=== PATIENT | female | born 1975 | race African-American/Black ===

== ENCOUNTER 2018-05-20 14:49 | Emergency (ER) | payer MEDICAID ==
[~2018-05-20] VITALS: Ht 165.1 cm; Wt 115.0 kg
[2018-05-20 14:50] VITALS: BP 120/66
[2018-05-20] MEDS ORDERED: ACETAMINOPHEN 500MG TABLET PO ONE (15:30)
== END 2018-05-20 16:53 | disposition home or self-care (01) ==
LOC: ER 14:59
DX: S80.01XA Contusion of right knee, initial encounter (principal); W01.0XXA Fall on same level from slipping, tripping and stumbling without subsequent striking against object, initial encounter; Y93.9 Activity, unspecified; Y92.9 Unspecified place or not applicable; I10 Essential (primary) hypertension
CPT/HCPCS: 99283

== ENCOUNTER 2019-04-23 11:41 | Emergency (ER) | payer MEDICAID ==
[~2019-04-23] VITALS: Ht 170.2 cm; Wt 148.0 kg
[~2019-04-23 11:41] MED LIST: AMLO10TA80 PO; CHOL100022 PO; HYDR-2510 PO; ZOLP12.543 PO
[2019-04-23] MEDS ORDERED: HYDROCODONE/ACETAMINOPHEN 5/325MG TABLET PO ONE (14:00)
[2019-04-23] MEDS ORDERED: IBUPROFEN 600MG TABLET PO ONE (14:00)
[2019-04-23 16:10] VITALS: BP 162/109
== END 2019-04-23 16:10 | disposition home or self-care (01) ==
LOC: ER 11:41
DX: S52.532A Colles' fracture of left radius, initial encounter for closed fracture (principal); I10 Essential (primary) hypertension; F12.10 Cannabis abuse, uncomplicated; W01.0XXA Fall on same level from slipping, tripping and stumbling without subsequent striking against object, initial encounter; Y93.89 Activity, other specified; Y92.018 Other place in single-family (private) house as the place of occurrence of the external cause
CPT/HCPCS: 29125; 73070; 73090; 73110; 73130; 99283

== ENCOUNTER 2019-06-04 08:15 | Emergency (ER) | payer MEDICAID ==
[~2019-06-04] VITALS: Ht 170.2 cm; Wt 150.0 kg
[2019-06-04] MEDS ORDERED: KETOROLAC 60MG/2ML VIAL IM ONE (09:30)
[2019-06-05 08:18] VITALS: BP 147/82
== END 2019-06-05 11:30 | disposition home or self-care (01) ==
LOC: ER 08:15
DX: S42.201A Unspecified fracture of upper end of right humerus, initial encounter for closed fracture (principal); M25.511 Pain in right shoulder; F12.10 Cannabis abuse, uncomplicated; I10 Essential (primary) hypertension; Z79.899 Other long term (current) drug therapy; X58.XXXA Exposure to other specified factors, initial encounter; Y93.89 Activity, other specified; Y92.89 Other specified places as the place of occurrence of the external cause; Y99.8 Other external cause status
CPT/HCPCS: 73030; 73200; 81025; 96372; 99285; J1885

== ENCOUNTER 2019-09-24 21:57 | Emergency (ER) | payer MEDICAID ==
[~2019-09-24] VITALS: Ht 175.3 cm; Wt 100.0 kg
[2019-09-25] MEDS ORDERED: ACETAMINOPHEN 325MG TABLET PO ONE
[2019-09-25] MEDS ORDERED: AMLODIPINE 10MG TABLET PO ONE
[2019-09-25 02:01] VITALS: BP 141/94
== END 2019-09-25 02:08 | disposition home or self-care (01) ==
LOC: ER 21:57
DX: M54.2 Cervicalgia (principal); I10 Essential (primary) hypertension; F12.10 Cannabis abuse, uncomplicated; Z79.899 Other long term (current) drug therapy
CPT/HCPCS: 93005; 99283